=== PATIENT | female | born 1985 | race Two or more races ===

== ENCOUNTER 2024-01-31 12:30 | Emergency (ER) | payer MEDICAID ==
[~2024-01-31] VITALS: Ht 167.6 cm; Wt 45.0 kg
[~2024-01-31 12:30] MED LIST: ONDA-144 SL; TRAM50TA2 PO
[2024-01-31 13:34] LABS: Urine Bacteria FEW /hpf (None Seen); Urine Blood TRACE /uL (Negative); Urine Clarity Turbid (Clear); Urine Color Light-Yellow (Yellow); Urine Mucus FEW (None Seen); Urine Protein, UAD TRACE (Negative); Urine Specific Gravity 1.027 (1.001-1.035); Urine Urobilinogen Normal (Negative); Urine WBC 6 /hpf (0 - 5)
[2024-01-31 13:42] LABS: Amphetamine Screen, Urine Pos (NEGATIVE)
[2024-01-31 13:43] LABS: Barbiturate Scree,Urine Neg (NEGATIVE); Benzodiazephine Screen, Urine Neg (NEGATIVE); Cannabinoid Screen, Urine Neg (NEGATIVE); Cocaine Screen, Urine Neg (NEGATIVE); Opiate Scree,Urine Neg (NEGATIVE); Phencyclidine Screen, Urine Neg (NEGATIVE)
[2024-01-31] MEDS: OLANZapine 5 MG TAB PO SCH (21:59)
[2024-02-01 07:45] VITALS: RESP 16; O2SAT 97
[2024-02-01] MEDS: SERTRALINE HCL 50 MG TAB PO SCH (13:38)
[2024-02-01 16:12] VITALS: BP 112/75; PULSE 87; RESP 16; TEMP 97.6; O2SAT 100
== END 2024-02-01 16:15 | disposition short-term general hospital (02) ==
LOC: ER 12:30 → EDBD 12:30 → ER 02-01 16:15
DX: R45.851 Suicidal ideations (principal); F31.9 Bipolar disorder, unspecified; Z98.890 Other specified postprocedural states
CPT/HCPCS: 36415; 80307; 80320; 81001